=== PATIENT | female | born 1980 | race Caucasian/White ===

== ENCOUNTER 2016-06-09 09:24 | Emergency (ER) | payer MEDICAID, OTHER ==
[2016-06-09] MEDS ORDERED: NS 1,000 ML IV ONE ×3 (09:27→11:28)
[2016-06-09] MEDS ORDERED: HYDROmorphONE/DILAUDID 1 MG/ML SYR IVP ONE ×2 (09:27→11:28)
[2016-06-09] MEDS ORDERED: LORazepam 2 MG/ML INJ IVP ONE (09:27)
--- NOTE | 2016-06-09 09:32 | EDPHY ---
H & P HPI/ROS: CHIEF COMPLAINT: Seizure HISTORY OF PRESENT ILLNESS: Patient is a 35-year-old female with a history of nonepileptic seizures. She states that she has had about 4 or 5 in her life but was seen by a neurologist and told that she did not have seizures. She does not take any anti seizure medications. She does take Celexa and Wellbutrin for depression. She works at the [employer]. She was working today when staff said tensed up and fell to the floor and began seizing. They describe tonic-clonic seizures that lasted for about a minute. She was postictal afterwards for 10-15 minutes. She was not incontinent does not have any oral trauma. She does have a large hematoma to her forehead as well as abrasions to her nasal bridge. She is complaining of mild headache and neck stiffness. Her glucose is 118 by EMS. She denies alcohol withdrawal. REVIEW OF SYSTEMS: Constitutional: denies: chills, fever, recent illness, recent injury EENTM: denies: blurred vision, double vision, nose congestion Respiratory: denies: cough, shortness of breath Cardiac: denies: chest pain, irregular heart rate, lightheadedness, palpitations Gastrointestinal/Abdominal: denies: abdominal pain, diarrhea, nausea, vomiting, blood streaked stools Genitourinary: denies: dysuria, frequency, hematuria, pain Musculoskeletal: denies: joint pain, muscle pain Skin: See HPI Neurological: denies: See HPI Hematologic/Lymphatic: denies: blood clots, easy bleeding, easy bruising Immunologic/allergic: denies: HIV/AIDS, transplant EXAM: GENERAL: Well-appearing, well-nourished and in no acute distress. HEAD: Large hematoma over forehead, abrasion no laceration EYES: Pupils equal round and reactive to light, extraocular movements intact, sclera anicteric, conjunctiva are normal. ENT: Abrasions to nasal bridge, TMs normal, nares patent, oropharynx clear without exudates no laceration. Moist mucous membranes. NECK: Normal range of motion, supple without lymphadenopathy or JVD. LUNGS: Breath sounds clear to auscultation bilaterally and equal. No wheezes rales or rhonchi. HEART: Regular rate and rhythm without murmurs, rubs or gallops. ABDOMEN: Soft, nontender, normoactive bowel sounds. No guarding, no rebound. No masses appreciated. BACK: No CVA tenderness, no spinal tenderness, step-offs or deformities EXTREMITIES: Normal range of motion, no pitting or edema. No clubbing or cyanosis. NEUROLOGICAL: Cranial nerves II through XII grossly intact. Normal speech, normal gait. 5/5 strength, normal movement in all extremities, normal sensation PSYCH: Normal mood, normal affect. SKIN: Warm, dry, normal turgor, no visible rashes or lesions. Source: Patient Exam Limitations: No limitations - Medical/Surgical History Hx Asthma: No Hx Chronic Respiratory Disease: No Hx Diabetes: No Hx Cardiac Disease: No Hx Renal Disease: No Hx Cirrhosis: No Hx Alcoholism: No Other PMH: Non epileptic seizures - Family History Significant Family History: No pertinent family hx - Social History Smoking Status: Never smoked Alcohol Use: Sober Drug Use: None Constitutional: Initial Vital Signs Temperature (C) 37.1 C 06/09/16 09:35 Heart Rate 143 H 06/09/16 09:35 Respiratory Rate 18 06/09/16 09:35 Blood Pressure 144/86 H 06/09/16 09:35 O2 Sat (%) 94 06/09/16 09:35 O2 Delivery Mode Room Air O2 (L/minute) 2 Allergies/Adverse Reactions: No Known Allergies Allergy (Unverified 06/09/16 09:34) Home Medications: Medication Instructions Recorded Cymbalta 06/09/16 Depot Provera 06/09/16 Hydrocodone/APAP 5/325 [[place] 1 - 2 tab PO Q4H PRN #20 tab 06/09/16 5/325 (RX)] Wellbutrin Sr 06/09/16 Medical Decision Making - Diagnostics Imaging: Results: CT scan of the head was obtained. The results of the study are negative for intracranial injury. The study was read by Dr. Ruiz. I viewed the images myself on the PACS system. Results: CT scan of the cervical spine was obtained. The results of the study are negative for acute injury, erosive facet consistent with rheumatoid arthritis. The study was read by Dr. Ruiz. I viewed the images myself on the PACS system. ED Course/Re-evaluation: 10:40 a.m. we discussed her CT and lab results. She is reassured. She still has a mild headache. I will treat her with Toradol and more fluids. She is still mildly tachycardic as well. I will refer her to Neurology. Will not start antiepileptics at this point until she has had an EEG. 1:00 p.m. the patient's pain is controlled. Her heart rate is decreased from 140-100. I will refer her to Neurology. She is eager to go. Her parents are here to take her. Her mom states the last time they diagnosed her with stress- induced seizures. That she is requesting pain medication. We discussed indications for returning. Differential Diagnosis: Partial list of the Differential diagnosis considered include but were not limited to; seizure, hematoma, nasal bone fracture, abrasion and although unlikely based on the history and physical exam, I also considered neck injury, syncope, arrhythmia, withdrawal. I discussed these differential diagnoses and the plan with the patient as well as the usual and expected course. The patient understands that the diagnosis is provisional and that in medicine we are not always correct and that further workup is often warranted. Usual and customary warnings were given. All of the patient's questions were answered. The patient was instructed to return to the emergency department should the symptoms at all worsen or return, otherwise to followup with the physician as we discussed. - Data Points Laboratory Results: Laboratory Results 06/09/16 09:41 06/09/16 09:41 06/09/16 09:41 WBC 5.80 10^3/uL (3.80-9.50) RBC 4.42 10^6/uL (4.18-5.33) Hgb 14.4 g/dL (12.6-16.3) Hct 42.3 % (38.0-47.0) MCV 95.7 fL (81.5-99.8) MCH 32.6 pg (27.9-34.1) MCHC 34.0 g/dL (32.4-36.7) RDW 13.3 % (11.5-15.2) Plt Count 246 10^3/uL (150-400) MPV 9.9 fL (8.7-11.7) Neut % (Auto) 56.3 % (39.3-74.2) Lymph % (Auto) 28.1 % (15.0-45.0) Whiteside % (Auto) 5.3 % (4.5-13.0) Eos % (Auto) 9.1 H % (0.6-7.6) Baso % (Auto) 0.7 % (0.3-1.7) Nucleat RBC Rel Count 0.0 % (0.0-0.2) Absolute Neuts (auto) 3.26 10^3/uL (1.70-6.50) Absolute Lymphs (auto) 1.63 10^3/uL (1.00-3.00) Absolute Monos (auto) 0.31 10^3/uL (0.30-0.80) Absolute Eos (auto) 0.53 H 10^3/uL (0.03-0.40) Absolute Basos (auto) 0.04 10^3/uL (0.02-0.10) Absolute Nucleated RBC 0.00 10^3/uL (0-0.01) Immature Gran % 0.5 % (0.0-1.1) Immature Gran # 0.03 10^3/uL (0.00-0.10) Sodium 143 mEq/L (134-144) Potassium 4.2 mEq/L (3.5-5.2) Chloride 110 mEq/L (97-110) Carbon Dioxide 21 L mEq/l (22-31) Anion Gap 12 mEq/L (8-16) BUN 13 mg/dL (7-23) Creatinine 0.9 mg/dL (0.6-1.0) Estimated GFR > 60 Glucose 97 mg/dL (70-100) Calcium 8.8 mg/dL (8.5-10.4) Medications Given: Discontinued Medications Hydromorphone HCl (Dilaudid) 0.5 mg IVP EDNOW ONE Stop: 06/09/16 09:28 Last Admin: 06/09/16 09:45 Dose: 0.5 mg Hydromorphone HCl (Dilaudid) 1 mg IVP EDNOW ONE Stop: 06/09/16 11:29 Last Admin: 06/09/16 12:00 Dose: 1 mg Sodium Chloride (Ns) 1,000 mls @ 0 mls/hr IV ONCE ONE PRN Reason: Wide Open Stop: 06/09/16 09:28 Last Admin: 06/09/16 09:45 Dose: 1,000 mls Sodium Chloride (Ns) 1,000 mls @ 0 mls/hr IV ONCE ONE PRN Reason: Wide Open Stop: 06/09/16 10:44 Last Admin: 06/09/16 10:52 Dose: 1,000 mls Sodium Chloride (Ns) 1,000 mls @ 0 mls/hr IV ONCE ONE PRN Reason: Wide Open Stop: 06/09/16 11:29 Last Admin: 06/09/16 12:00 Dose: 1,000 mls Ketorolac Tromethamine (Toradol) 30 mg IVP EDNOW ONE Stop: 06/09/16 10:44 Last Admin: 06/09/16 10:51 Dose: 30 mg Lorazepam (Ativan Injection) 1 mg IVP EDNOW ONE Stop: 06/09/16 09:28 Last Admin: 06/09/16 09:45 Dose: 1 mg Departure - Departure Disposition: Home, Routine, Self-Care Clinical Impression: Seizure, Hematoma Condition: Fair Instructions: Epilepsy (ED), Hematoma (ED) Referrals: Patient,NotPresent [Unknown] - As per Instructions Jesus Rooney DO [Medical Doctor] - As per Instructions Prescriptions: Hydrocodone/APAP 5/325 [[place] 5/325 (RX)] 1 - 2 tab PO Q4H PRN #20 tab PRN Reason: Pain, Moderate
[2016-06-09 09:54] LABS: % IMMATURE GRANULYOCYTES 0.5 % (0.0-1.1); ABSOLUTE IMMATURE GRANULOCYTES 0.03 10^3/uL (0.00-0.10); ADD DIFF? NO; ADD MORPH? NO; ADD SCAN? NO; ATYPICAL LYMPHOCYTE FLAG 0 (0-99); FRAGMENT RBC FLAG 0 (0-99); HEMATOCRIT 42.3 % (38.0-47.0); HEMOGLOBIN 14.4 g/dL (12.6-16.3); LEFT SHIFT FLG 0 (0-99); LIPEMIA HEMOLYSIS FLAG 90 (0-99); MEAN CELL HEMOGLOBIN 32.6 pg (27.9-34.1); MEAN CELL VOLUME 95.7 fL (81.5-99.8); MEAN PLATELET VOLUME 9.9 fL (8.7-11.7); PLATELET CLUMPS FLAG 0 (0-99); PLATELET COUNT 246 10^3/uL (150-400); RED BLOOD CELL COUNT 4.42 10^6/uL (4.18-5.33); RED CELL DISTRIBUTION WIDTH 13.3 % (11.5-15.2)
--- NOTE | 2016-06-09 10:21 | CT ---
1. CT Head Without Contrast History: Seizure today, hit forehead and nose. Technique: Noncontrast images through the head. Soft tissue and bone window evaluation is performed. Dose reduction techniques were utilized. Comparison: None Findings: There is a midline anterior frontal scalp hematoma without evidence of an underlying fractu re. The frontal sinuses are normally aerated. There is no evidence of an intracranial mass or edema. There is no evidence for hemorrhage, acute infarction, hydrocephalus or abnormal intracranial calcif ication. No subarachnoid blood is identified. There is no midline shift. The ambient cistern is paten t. Bone window evaluation reveals normally aerated paranasal and mastoid sinuses. There is no evidenc e of pneumocephalus. Impression: 1. Midline frontal hematoma without underlying calvarial or brain abnormality 2. No source for seizure identified. 3. No facial bone fracture. 2. CT Cervical Spine Without Contrast History: Trauma. Seizure. Comparison: None Technique: Multislice helical CT through the cervical spine without contrast from the skull base to T 1. Soft tissue and bone evaluation is performed. Sagittal and coronal reconstructions are obtained an d reviewed. Dose reduction techniques were utilized. Findings: Cervical alignment is anatomic. No cervical fracture or dislocation is identified. The rela tionship between skull base and C1 is normal. The C1-C2 articulation is normally aligned. The odontoi d process is intact. There is mild narrowing of the C6-C7 disk space where there are small ventral an d dorsal osteophytes present.. Facet joints are normally aligned. There is degenerative erosive facet disease on the left at C3-C4 and C7-T1 and on the right at T1-T2 and T2-T3. The cervical thoracic j unction is normally aligned. There are however mild superior endplate compression deformities of T1 a nd T2 that are of unknown age.. Soft tissue window evaluation does not show evidence of epidural or p revertebral hematoma. Impression: 1. No acute posttraumatic cervical abnormality identified. 2. Mild T1 and T2 vertebral body compressions of unknown age 3. Degenerative disk and facet disease described above. Facet disease is associated with erosions. Results called and discussed with LARA BRICE MD at 06/09/2016 10:18 Final results are concordant with the initial interpretation. General information for patients regarding this examination can be found at [email or web address]. If you have questions or comments about this report, please contact me at [phone] (hospital) or [phone] ([facility]).
[2016-06-09] MEDS ORDERED: KETOROLAC 30 MG/1 ML SDV IVP ONE (10:43)
[2016-06-09 11:31] LABS: ANION GAP 12 mEq/L (8-16); CALCIUM 8.8 mg/dL (8.5-10.4); CARBON DIOXIDE 21 mEq/l (22-31); CHLORIDE 110 mEq/L (97-110); CREATININE 0.9 mg/dL (0.6-1.0); GLOMERULAR FILTRATION RATE > 60; GLUCOSE 97 mg/dL (70-100); POTASSIUM 4.2 mEq/L (3.5-5.2); SODIUM 143 mEq/L (134-144)
[2016-06-09 13:04] VITALS: RESP 18
[2016-06-09 13:39] VITALS: BP 117/65; PULSE 118; TEMP 98.1; O2SAT 96
== END 2016-06-09 13:39 | disposition home or self-care (01) ==
LOC: EDUNIT#
DX: S00.83XA Contusion of other part of head, initial encounter (principal); G40.909 Epilepsy, unspecified, not intractable, without status epilepticus; S00.31XA Abrasion of nose, initial encounter; W18.39XA Other fall on same level, initial encounter
CPT/HCPCS: 96374; J1170; J1885

== ENCOUNTER → 2016-06-29 | Outpatient (CLI) | payer OTHER ==
--- NOTE | 2016-06-29 14:33 | CPEEG ---
FOUR-HOUR VIDEO EEG DATE OF STUDY: 06/29/2016 INTERPRETATION: This 4-hour video EEG recording is abnormal due to the presence of occasional potentially epileptogenic abnormalities over the left frontal head region. These findings would be consistent with a focal seizure disorder. During the video EEG monitoring session, the patient did not have any clinical events. REPORT: This 4-hour video EEG contains 10 Hz alpha to the posterior head regions. The background activity was normal and symmetric. There was no abnormal activation at rest. During photic stimulation, there was a left frontal spike discharge. There was no additional activation with hyperventilation. The patient became drowsy and fell asleep during the study. During drowsiness and sleep, there continued to be occasional left frontal spikes (maximal at electrode FP1). There was episodic secondary bilateral synchrony with propagation over the bifrontal head regions. The patient did not have any clinical events during the video EEG monitoring session. /[id number]/MODL MTDD
== END ==
LOC: FCPNEURO 08:49
PROVIDERS: ATTEND Psychiatry & Neurology Neurology
DX: R56.9 Unspecified convulsions (principal)